=== PATIENT | male | born 1965 | race Caucasian/White ===

== ENCOUNTER 2016-05-15 21:52 | Emergency (ER) ==
[2016-05-15] MEDS ORDERED: ASPIRIN PO STA (22:01)
[2016-05-15 22:09] LABS: MANUAL DIFF NEEDED? NO
[2016-05-15 22:12] LABS: BASO% 0.4 % (0.0-0.8); EOS% 3.2 % (0.0-10.0); HEMATOCRIT 42.8 % (42.0-52.0); HEMOGLOBIN 15.3 g/dL (14.0-18.0); IMM GRAN# 0.08 X1000 (0.0-0.04); IMM GRAN% 0.9 % (0.0-0.5); LYMPH# 0.95 X1000 (1.2-3.4); LYMPH% 10.2 % (20.5-51.1); MCH 30.9 PG (27-31); MCHC 35.7 g/dL (33-37); MCV 86.5 FL (81-99); MONO# 0.94 X1000 (0.11-0.59); MONO% 10.1 % (1.7-9.3); MPV 10.6 FL (7.4-10.4); NEUT% 75.2 % (42.2-75.2); PLT 217 X1000 (130-400); RBC 4.95 XMIL (4.7-6.1)
[2016-05-15 22:21] LABS: INR 0.97; PROTIME 10.3 Seconds (9.2-11.7); PTT 28.9 Seconds (22.0-36.0)
[2016-05-15 22:29] LABS: AGAP 15; ALBUMIN 4.2 g/dL (3.5-5.0); ALKALINE PHOSPHATASE 193 U/L (32-122); BUN 14 mg/dL (8-22); CHLORIDE 102 mmol/L (98-107); CK PROFILE 137 U/L (24-204); COSMO 281; GOT 22 U/L (10-34); GPT 15 U/L (10-44); MAGNESIUM 1.7 mg/dL (1.5-2.7); POTASSIUM 3.6 mmol/L (3.5-5.1); SODIUM 141 mmol/L (136-145); TCO2 24 mmol/L (25-35); TOTAL BILIRUBIN 0.98 mg/dL (0.20-1.00); TOTAL PROTEIN 6.8 g/dL (6.3-8.3)
--- NOTE | 2016-05-15 23:01 | PROVIDER DOCUMENTATION ---
HPI-Chest Pain <NadiaMadeline chicas - Last Filed: 05/16/16 00:38> - General Source: patient - History of Present Illness-CP Location: reports: substernal Chest Pain Radiation: reports: no radiation Quality of Pain: reports: none Severity in ED: mild Onset/Duration: this evening (1700) Timing: still present Context/Activities at Onset: reports: none Modifying Factors: improves with: nothing Associated Symptoms: reports: dizziness Aspirin Treatment Today: 325 mg x 1, provided by ED Similar Symptoms Previously?: No Recently Seen Here or By Another Healthcare Provider: No <Leola Vernon - Last Filed: 05/16/16 00:45> - General Chief Complaint: Chest Pain Stated Complaint: CP, NUMBNESS, DIZZY Time Seen by Provider: 05/15/16 22:45 Allergies/Adverse Reactions: Patient Allergies Allergy/AdvReac Type Severity Reaction Status Date / Time No Known Allergies Allergy Verified 05/15/16 22:48 Home Medications: Home Medication List Medication Instructions Recorded Confirmed Last Taken Type Buspirone HCl 15 mg PO BID 07/04/14 05/15/16 10/17/15 09:00 History Citalopram [Celexa] 20 mg PO QAM 07/04/14 05/15/16 10/17/15 09:00 History Pravastatin Sodium 80 mg PO DAILY 07/04/14 05/15/16 10/17/15 09:00 History Lamotrigine [Lamictal] 400 mg PO BID 04/18/15 05/15/16 10/17/15 09:00 History Diltiazem C.d. [Cardizem Cd] 180 mg PO DAILY #30 capsule 10/15/15 05/15/1610/16 09:00 Rx Flecainide [Tambocor] 50 mg PO BID #60 tablet NS 10/15/15 05/15/16 10/17/15 09: 00 Rx Omeprazole [Prilosec] 20 mg PO DAILY@0700 #30 capsule 10/15/15 05/15/16 07:00 Rx Phenytoin [Dilantin] 400 mg PO QHS #160 capsule 10/15/15 05/15/16 10/16/15 21: 00 Rx Tamsulosin [Flomax] 0.4 mg PO DAILY #30 capsule NS 10/15/15 05/15/16 10/17/15 09 :00 Rx Review of Systems - Adult - REVIEW OF SYSTEMS - ADULT Constitutional: denies: chills, fever Eyes: reports: no symptoms reported Ears, Nose, Mouth & Throat: reports: no symptoms reported Cardiovascular: reports: chest pain. denies: palpitations Respiratory: denies: cough, shortness of breath Gastrointestinal: denies: abdominal pain, nausea, vomiting Genitourinary: reports: no symptoms reported Musculoskeletal: reports: no symptoms reported Integumentary: reports: no symptoms reported Neurological: reports: dizziness/vertigo, numbness. denies: headache/migraines Psychiatric: reports: no symptoms reported Endocrine: reports: no symptoms reported Hematologic/Lymphatic: reports: no symptoms reported Allergic/Immunologic: reports: no symptoms reported All Other Systems: Reviewed and Negative <Leola Vernon - Last Filed: 05/16/16 00:45> Past History - Adult - PAST MEDICAL HISTORY-ADULT Review of Records: reports: Nursing Assessment Review, Medications Reviewed Major Childhood Illnesses: reports: denies history Cardiovascular: reports: A-Fib, HTN Respiratory: reports: denies history Gastrointestinal: reports: denies history Obstetrical/Gynecological: reports: denies history Genitourinary: reports: chronic UTI's Musculoskeletal: reports: arthritis Neurological: reports: CVA, Seizures/Epilepsy Psychiatric: reports: anxiety Endocrine/Immune: reports: hypoglycemia Other Conditions: reports: denies history - PRIOR SURGERIES/PROCEDURES Surgical/Procedure History: reports: hernia repair, other (heart cath, cardiac ablasion, TURP) - IMMUNIZATION STATUS Childhood Immunizations: UTD, See Nurse Assessment Flu Vaccine: See Nurse Assessment - FAMILY HISTORY Family History: reviewed, not pertinent - SOCIAL HISTORY Smoking: non-smoker <Leola Vernon - Last Filed: 05/16/16 00:45> Physical Exam-General - PHYSICAL EXAM-ADULT Initial Vital Signs Reviewed: Yes - CONSTITUTIONAL General Appearance: appears well, alert, no apparent distress - RESPIRATORY Respiratory: chest non-tender, lungs clear, normal breath sounds - CARDIOVASCULAR Cardiovascular: normal peripheral pulses, regular rate, rhythm, no edema - GASTROINTESTINAL (ABDOMEN) Abdominal Exam: normal bowel sounds, non tender, soft - MUSCULOSKELETAL Extremity: normal inspection - SKIN Integumentary: normal color, normal turgor, warm/dry - NEUROLOGIC Neurologic: environmental services coordinator II-XII nml as tested, sensory deficit (right facial less sensation) - PSYCHIATRIC Psych/Mental Status: normal mood/affect, normal thought content, normal thought process, oriented x 3 <Leola Vernon - Last Filed: 05/16/16 00:45> Progress <RadhaMadelinemarilyn Anderson - Last Filed: 05/16/16 00:38> - EKG 1 Time of EKG reading by physician:: 21:59 EKG Read and Signed by:: Glenn Viera EKG Interpretation (*Must complete 3 of following elements*): Normal Rate: 78 Rhythm: NSR [place]: normal 2 Time of EKG reading by physician:: 00:08 EKG Read and Signed by:: Glenn Viera EKG Interpretation (*Must complete 3 of following elements*): Normal Rate: 66 Rhythm: NSR [place]: normal <Leola Vernon - Last Filed: 05/16/16 00:45> - PLAN OF CARE/RESULTS Progress/Plan/Lab Results: Vital Signs Temp Pulse Resp BP Pulse Ox 05/15/16 21:57 98.8 F 89 16 152/74 98 No Known Allergies Allergy (Verified 05/15/16 22:48) Buspirone HCl 15 mg PO BID 07/04/14 Citalopram [Celexa] 20 mg PO QAM 07/04/14 Pravastatin Sodium 80 mg PO DAILY 07/04/14 Lamotrigine [Lamictal] 400 mg PO BID 04/18/15 Diltiazem C.d. [Cardizem Cd] 180 mg PO DAILY #30 capsule 10/15/15 Flecainide [Tambocor] 50 mg PO BID #60 tablet NS 10/15/15 Omeprazole [Prilosec] 20 mg PO DAILY@0700 #30 capsule 10/15/15 Phenytoin [Dilantin] 400 mg PO QHS #160 capsule 10/15/15 Tamsulosin [Flomax] 0.4 mg PO DAILY #30 capsule NS 10/15/15 Laboratory 05/16/16 05/16/16 05/15/16 00:05 00:05 22:00 WBC RBC Hgb Hct MCV MCH MCHC RDW Std Deviation Plt Count MPV Immature Gran % (Auto) Neut % (Auto) Lymph % (Auto) [place] % (Auto) Eos % (Auto) Baso % (Auto) Immature Gran # (Auto) Neut # (Auto) Lymph # (Auto) [place] # (Auto) Eos # (Auto) Baso # (Auto) PT INR PTT (Actin FS) D-Dimer Sodium Potassium Chloride Carbon Dioxide Anion Gap BUN Creatinine Estimated GFR/1.73 m2 BUN/Creatinine Ratio Glucose Calculated Osmolality Calcium Magnesium Total Bilirubin AST ALT Alkaline Phosphatase Creatine Kinase 128 Troponin T < 0.010 < 0.010 Gxa-I-Kzlwiomfmwg Pept Total Protein Albumin Globulin Albumin/Globulin Ratio 05/15/16 05/15/16 05/15/16 22:00 22:00 22:00 WBC RBC Hgb Hct MCV MCH MCHC RDW Std Deviation Plt Count MPV Immature Gran % (Auto) Neut % (Auto) Lymph % (Auto) [place] % (Auto) Eos % (Auto) Baso % (Auto) Immature Gran # (Auto) Neut # (Auto) Lymph # (Auto) [place] # (Auto) Eos # (Auto) Baso # (Auto) PT 10.3 INR 0.97 PTT (Actin FS) 28.9 D-Dimer 0.21 Sodium Potassium Chloride Carbon Dioxide Anion Gap BUN Creatinine Estimated GFR/1.73 m2 BUN/Creatinine Ratio Glucose Calculated Osmolality Calcium Magnesium Total Bilirubin AST ALT Alkaline Phosphatase Creatine Kinase Troponin T Gmg-A-Chblfbdzazz Pept 60 Total Protein Albumin Globulin Albumin/Globulin Ratio 05/15/16 05/15/16 22:00 22:00 WBC 9.31 RBC 4.95 Hgb 15.3 Hct 42.8 MCV 86.5 MCH 30.9 MCHC 35.7 RDW Std Deviation 13.3 Plt Count 217 MPV 10.6 H Immature Gran % (Auto) 0.9 H Neut % (Auto) 75.2 Lymph % (Auto) 10.2 L [place] % (Auto) 10.1 H Eos % (Auto) 3.2 Baso % (Auto) 0.4 Immature Gran # (Auto) 0.08 H Neut # (Auto) 7.00 H Lymph # (Auto) 0.95 L [place] # (Auto) 0.94 H Eos # (Auto) 0.30 Baso # (Auto) 0.04 PT INR PTT (Actin FS) D-Dimer Sodium 141 Potassium 3.6 Chloride 102 Carbon Dioxide 24 L Anion Gap 15 BUN 14 Creatinine 0.9 Estimated GFR/1.73 m2 > 60 BUN/Creatinine Ratio 16 Glucose 91 Calculated Osmolality 281 Calcium 9.0 Magnesium 1.7 Total Bilirubin 0.98 AST 22 ALT 15 Alkaline Phosphatase 193 H Creatine Kinase 137 Troponin T Qow-K-Vqslsmrktjp Pept Total Protein 6.8 Albumin 4.2 Globulin 2.6 Albumin/Globulin Ratio 1.6 Orders Category Date Time Status CHEST-2 VIEWS [RAD] Stat Exams 05/15/16 22:01 Taken CBC WITH ELECTRONIC DIFF [HEME] Stat Lab 05/15/16 22:00 Completed CK PROFILE [SP CHEM] Stat Lab 05/15/16 22:00 Completed CK PROFILE [SP CHEM] Stat Lab 05/16/16 00:05 Completed COMPREHENSIVE METABOLIC PANEL [CHEM] Stat Lab 05/15/16 22:00 Completed D-DIMER [CHEM] Stat Lab 05/15/16 22:00 Completed MAGNESIUM [CHEM] Stat Lab 05/15/16 22:00 Completed PRO B-NATRIURETIC PEPTIDE Stat Lab 05/15/16 22:00 Completed PROTIME WITH INR [COAG] Stat Lab 05/15/16 22:00 Completed PTT [COAG] Stat Lab 05/15/16 22:00 Completed TROPONIN T Stat Lab 05/15/16 22:00 Completed TROPONIN T Stat Lab 05/16/16 00:05 Completed Aspirin Med 05/15/16 22:01 Discontinued 325 mg PO STAT STA EKG [EKG] Stat Ther 05/15/16 21:56 Ordered EKG [EKG] Stat Ther 05/15/16 23:54 Ordered (Madeline Garcia) Departure - Departure Time of Disposition Order: 00:39 Certified Medical Emergency: Emergent <Madeline Garcia - Last Filed: 05/16/16 00:38> <Leola Vernon - Last Filed: 05/16/16 00:45> - Departure DIAGNOSIS: Atypical chest pain, Dizziness Disposition: HOME 01 Condition: Stable Additional Instructions: Follow up with your sticker hand ED Follow Up Instructions: You have been treated by a care provider in the Emergency Department. These instructions are being provided to you so you can have an understanding of how to care for yourself upon discharge. Upon discharge from the Emergency Department, you are responsible for making arrangements for follow-up care by a physician of your choice. Take all prescribed medications as directed. Return to the Emergency Department immediately for any new or worsening symptoms. You may call the Physician Referral phone number at [phone] to obtain a list of Physicians who are taking new patients. Referrals: [Primary Care Provider] - Instructions: Nonspecific Chest Pain, Dizziness, [id number] Attestation - Scribe Verification/Attestation Scribe:: Leola Vernon Acting as Scribe for:: Madeline Garcia Scribe documention review:: This chart was documented by a scribe and accurately reflects the service the provider performed and the decisions made by the provider. <Leola Vernon - Last Filed: 05/16/16 00:45> Physician Attestation - Physician Attestation I, the provider, attest to the following statement:: Madeline Garcia Physician documentation Attestation:: This documentation recorded by the scribe accurately reflects the service I personally performed and the decisions made by me. <Leola Vernon - Last Filed: 05/16/16 00:45>
[2016-05-16 00:45] VITALS: BP 142/85
--- NOTE | 2016-05-16 07:45 | EKG Report ---
Test Performed on : 05/16/2016 00:08:21 AM Test Reason : cp Blood Pressure : / mmHG Vent. Rate : 066 BPM Atrial Rate : 066 BPM P-R Int : 168 ms QRS Dur : 084 ms QT Int : 370 ms P-R-T Axes : 059 036 017 degrees QTc Int : 387 ms Normal sinus rhythm. Normal ECG When compared with ECG of 15-MAY-2016 21:59, (Unconfirmed) No significant change was found Unconfirmed Result
--- NOTE | 2016-05-16 07:46 | EKG Report ---
Test Performed on : 05/15/2016 9:59:18 PM Test Reason : cp Blood Pressure : / mmHG Vent. Rate : 078 BPM Atrial Rate : 078 BPM P-R Int : 142 ms QRS Dur : 084 ms QT Int : 342 ms P-R-T Axes : 065 047 033 degrees QTc Int : 389 ms Normal sinus rhythm. Normal ECG When compared with ECG of 17-OCT-2015 17:52, T wave inversion no longer evident in Lateral leads QT has shortened Unconfirmed Result
--- NOTE | 2016-05-16 08:12 | Diag Imaging Result Document ---
PROCEDURE NAME: CHEST-2 VIEWS - 05/15/2016 FRONTAL AND LATERAL CHEST, TWO VIEWS: COMPARISON: Compared to 10/04/2015. FINDINGS: The lungs are well expanded. The heart is not enlarged. The vessels are not distended. No pneumonia. No pleural effusions. No free air beneath the diaphragm. IMPRESSION: No acute abnormality.
== END 2016-05-16 00:54 | disposition home or self-care (01) ==
LOC: ED 21:52
DX: R07.89 Other chest pain (principal); R42 Dizziness and giddiness; I48.91 Unspecified atrial fibrillation; I10 Essential (primary) hypertension; R20.0 Anesthesia of skin; M19.90 Unspecified osteoarthritis, unspecified site; Z86.73 Personal history of transient ischemic attack (TIA), and cerebral infarction without residual deficits; R56.9 Unspecified convulsions; Z79.899 Other long term (current) drug therapy
CPT/HCPCS: 71020; 80053; 82550; 83735; 83880; 84484; 85025; 85379; 85610; 85730; 93005